=== PATIENT | male | born 1975 | race Caucasian/White ===

== ENCOUNTER 2025-01-05 11:20 | Emergency (ER) | payer MEDICAID, OTHER ==
[~2025-01-05] VITALS: Ht 188 cm; Wt 95.9 kg
[2025-01-05 12:32] LABS: Basophils # (auto) 0.1 10 ^3/uL (0-0.2); Basophils % (auto) 1.3 % (0.0-2.0); Eosinophils # (auto) 0.2 10 ^3/uL (0-0.8); Eosinophils % (auto) 2.5 % (0.0-7.0); Hematocrit 46.2 % (41.0-53.0); Hemoglobin 15.8 g/dL (13.5-17.5); Lymphocytes # (auto) 1.7 10 ^3/uL (0.4-5.4); Lymphocytes % (auto) 23.9 % (10.0-50.0); Mean Corpuscular Hemoglobin 30.2 pg (28.0-32.0); Mean Corpuscular Hgb Conc. 34.1 g/dL (32.0-36.0); Mean Corpuscular Volume 88.4 fL (80.0-100.0); Monocytes # (auto) 0.5 10 ^3/uL (0-1.3); Monocytes % (auto) 7.2 % (0.0-12.0); Neutrophils # (auto) 4.5 10 ^3/uL (1.6-8.6); Neutrophils % (auto) 65.1 % (37.0-80.0); Nucleated Red Blood Cells % 0.2 %; Platelet Count (auto) 98 10^3/uL (140-450); Red Blood Cells 5.22 10^6/uL (4.5-5.90); Red Cell Distribution Width 13.6 % (11.8-14.3); White Blood Cell 6.9 10^3/uL (4.4-10.8)
[2025-01-05 12:37] LABS: Alanine Aminotransferase 16 U/L (7-40); Albumin 4.8 g/dL (3.2-4.8); Alkaline Phosphatase 50 U/L (46-116); Anion Gap 11 (5-15); BUN/Creatinine Ratio 12.5 (10.0-20.0); Bilirubin, Total 0.9 mg/dL (0.2-1.0); Blood Urea Nitrogen 17 mg/dL (9-23); Calcium 9.7 mg/dL (8.7-10.4); Carbon Dioxide 25 mmol/L (20-31); Chloride 106 mmol/L (98-107); Lipase 41 U/L (12-53); Sodium 142 mmol/L (136-145)
[2025-01-05 12:39] LABS: Aspartate Aminotransferase 13 U/L (13-40); Glucose 120 mg/dL (74-106)
[2025-01-05] MEDS: SODIUM CHLORIDE 0.9% 1,000 ML IV ONE (12:43)
[2025-01-05] MEDS: ONDANSETRON HCL 4 MG/2 ML VIAL IV ONE (12:43)
[2025-01-05] MEDS: KETOROLAC TROMETH 30 MG/ML 1ML VIAL IV ONE (12:44)
[2025-01-05] MEDS: MORPHINE SULFATE 4 MG/ML SYR/VIAL IV ONE (12:45)
[2025-01-05] MEDS: MAGNESIUM SULFATE 1GM/100ML 100 ML IV SCH (12:53)
--- NOTE | 2025-01-05 13:22 | DVH ---
Indication: L flank pain Technique: CT axial images of the abdomen and pelvis are obtained without contrast. Coronal and sagit mario reformats were obtained. Radiation Dose Information: CTDI volume is 12.24 mGy. Dose-length product is 695.67 mGy*cm Comparison: None FINDINGS: There is limited interpretation of the abdomen and pelvis without administration of intravenous contr ast. The lung bases demonstrate no pleural effusion. Adrenal glands, spleen and pancreas unremarkable in shape. Liver unremarkable in shape. No CT eviden ce for cholelithiasis. There is mild to moderate left hydroureteronephrosis secondary to a distal left ureteral calculus paul suring 2 mm. Left perinephric edema and stranding. Right kidney demonstrates no significant hydrone phrosis /nephrolithiasis. Stomach is partially distended. Small bowel loops are normal in caliber. Moderate volume stool in the colon. Normal appendix. Abdominal aortic atherosclerotic disease. Bladder is partially distended. No free pelvic fluid. No in guinal lymphadenopathy. [id number] thoracolumbar degenerative disc disease. IMPRESSION: 1. Mild to moderate left hydroureteronephrosis secondary to a 2 mm distal left ureteral calculus
[2025-01-05] MEDS ORDERED: TAMS-35 PO (13:53)
[2025-01-05] MEDS ORDERED: LEVO500T91 PO (13:53)
[2025-01-05] MEDS ORDERED: HYDR-4902 PO (13:53)
--- NOTE | 2025-01-05 13:54 | ED.PDOC ---
General HPI Comments 49-year-old male with PMHx Migraines presents with a chief complaint of flank pain x 30 minutes prior to arrival. Patient states that he spontaneously got a sudden, sharp pain in his left flank radiating to the left lower quadrant while at home and came into the ER. Patient denies any injuries or trauma prior to onset of symptoms. Patient reports he had a migraine headache last night, however no other symptoms. He denies nausea, vomiting, fever, diarrhea, constipation or dysuria. No other symptoms or modifying factors present at this time. Chief Complaint: Flank Pain Time Seen by MD: 13:42 Primary Care Provider: NONE Reviewed notes: Medications, Allergies Allergies: Coded Allergies: Penicillins (Verified Allergy, Unknown, 01/05/25) Sulfa Antibiotics (Verified Allergy, Unknown, 01/05/25) Home Meds Active Scripts Levofloxacin Hemihydrate (LEVAQUIN 500 MG) 500 Mg Tab, 1 TAB PO DAILY, #7 TAB Prov:VEE CLARK MD 01/05/25 Tamsulosin Hcl (Flomax) 0.4 Mg Cap, 1 CAP PO DAILY, #20 CAP 11 Refills 1 po daily, 30 min after same meal. Take until pain resolves. Prov:VEE CLARK MD 01/05/25 Hydrocodone-Acetaminophen (Hydrocodone Bitartrate/AC 5-325 mg) 1 Tab Tab, 1-2 TAB PO Q6HP PRN, #20 TAB prn breakthrough pain Prov:VEE CLARK MD 01/05/25 Information Source: Patient Mode of Arrival: Ambulatory Severity: Moderate Inability to void: None Timing: Hours Duration: Since onset Has not urinated for: Minutes Prehospital treatment: None Onset: Spontaneous Symptoms: None History of: None Location: (L)Flank Penile discharge: None Modifying factors: None associated signs and symptoms: Flank Pain Past Medical History Past Medical History (Other): Migraines Surgical History: Hernia Repair Surgical History (Other): Vasectomy, Left Knee Repair Family History Family History: Reviewed,noncontributory to illness Social History Smoker: Non-Smoker Alcohol: Denies ETOH Use Drugs: Denies Drug Use Lives In: Home Constitutional: denies: chills, diaphoresis, fatigue, fever, malaise, sweats, weakness, others EENTM: denies: blurred vision, double vision, ear bleeding, ear discharge, ear drainage, ear pain, ear ringing, eye pain, eye redness, hearing loss, mouth pain, mouth swelling, nasal discharge, nose bleeding, nose congestion, nose pain, photophobia, tearing, throat pain, throat swelling, voice changes, others Respiratory: denies: cough, hemoptysis, orthopnea, SOB at rest, shortness of breath, SOB with excertion, stridor, wheezing, others Cardiovascular: denies: chest pain, dizzy spells, diaphoresis, Dyspnea on exertion, edema, irregular heart beat, left arm pain, lightheadedness, palpitations, PND, syncope, others Gastrointestinal: denies: abdomen distended, abdominal pain, blood streaked bowels, constipated, diarrhea, dysphagia, difficulty swallowing, hematemesis, melena, nausea, poor appetite, poor fluid intake, rectal bleeding, rectal pain, vomiting, others Genitourinary: reports: flank pain; denies: burning, dysuria, frequency, hematuria, incontinence, penile discharge, penile sore, pain, testicle pain, testicle swelling, urgency, others Neurological: denies: dizziness, fainting, headache, left sided numbness, left sided weakness, numbness, paresthesia, pre-existing deficit, right sided numbness, right sided weakness, seizure, speech problems, tingling, tremors, weakness, others Musculoskeletal: denies: back pain, gout, joint pain, joint swelling, muscle pain, muscle stiffness, neck pain, others Integumetry: denies: bruises, change in color, change in hair/nails, dryness, laceration, lesions, lumps, rash, wounds, others Allergic/Immunocompromised: denies: Difficulty Healing, Frequent Infections, Hives, Itching, others Hematologic/Lymphatic: denies: anemia, blood clots, easy bleeding, easy bruising, swollen glands, others Endocrine: denies: excessive hunger, excessive sweating, excessive thirst, excessive urination, flushing, intolerance to cold, intolerance to heat, unexplained weight gain, unexplained weight loss, others Psychiatric: denies: anxiety, bipolar disorder, depression, hopeless, panic disorder, schizophrenia, sleepless, suicidal, others All Other Systems: Reviewed and Negative Physical Exam General Appearance: Moderate Distress HEENT: Other (Pupils and face symmetric. Moist mucous membranes.) Neck: Full Range of Motion, Normal Inspection Respiratory: Lungs Clear, No Accessory Muscle Use, No Respiratory Distress, Normal Breath Sounds Cardiovascular: No Edema, No JVD, Regular Rate/Rhythm Breast Exam: Deferred Gastrointestinal: Soft, Other (Left mid and lower flank tenderness to palpation, mild left mid abdominal tenderness to palpation. No rebound or guarding) Genitalia: Deferred Pelvic: Deferred Rectal: Deferred Extremities: Normal inspection, Normal range of motion, Non-tender, No pedal edema Neurologic: Alert (Oriented x4), Normal Affect, Normal Mood, Other (Ambulatory) Cerebellar Function: NOT DONE Reflexes: NOT DONE Skin: Dry, Normal Color, Warm Lymphatic: NOT DONE Was a procedure done? Was a procedure done?: No Differential Diagnosis Kidney stone (Female): N/A Kidney stone (Male): Aortic dissection, Pyelonephritis, Renal failure, Strain, Urinary obstruction, Urolithiasis, Urinary tract infection Penile/Scrotal: N/A X-Ray, Labs, Meds, VS Vital Signs Date Time Temp Pulse Resp B/P (MAP) Pulse Ox O2 Delivery O2 Flow Rate FiO2 01/05/25 13:43 85 19 144/98 01/05/25 12:45 62 22 155/102 01/05/25 12:44 98.6 63 18 155/102 (119) 97 98.6 01/05/25 11:41 98.7 69 16 140/90 (107) 100 98.7 01/05/25 11:41 69 18 100 Room Air 01/05/25 11:35 97.9 68 17 100/74 (83) 100 97.9 Lab Test 01/05/25 11:50 Range/Units White Blood Count 6.9 4.4-10.8 10^3/uL Red Blood Count 5.22 4.5-5.90 10^6/uL Hemoglobin 15.8 13.5-17.5 g/dL Hematocrit 46.2 41.0-53.0 % Mean Corpuscular Volume 88.4 80.0-100.0 fL Mean Corpuscular Hemoglobin 30.2 28.0-32.0 pg Mean Corpuscular Hemoglobin Concent 34.1 32.0-36.0 g/dL Red Cell Distribution Width 13.6 11.8-14.3 % Platelet Count 98 L 140-450 10^3/uL Mean Platelet Volume 12.0 H 6.9-10.8 fL Neutrophils (%) (Auto) 65.1 37.0-80.0 % Lymphocytes (%) (Auto) 23.9 10.0-50.0 % Monocytes (%) (Auto) 7.2 0.0-12.0 % Eosinophils (%) (Auto) 2.5 0.0-7.0 % Basophils (%) (Auto) 1.3 0.0-2.0 % Neutrophils # (Auto) 4.5 1.6-8.6 10 ^3/uL Lymphocytes # (Auto) 1.7 0.4-5.4 10 ^3/uL Monocytes # (Auto) 0.5 0-1.3 10 ^3/uL Eosinophils # (Auto) 0.2 0-0.8 10 ^3/uL Basophils # (Auto) 0.1 0-0.2 10 ^3/uL Nucleated Red Blood Cells 0.2 % Platelet Estimate Pending Sodium Level 142 136-145 mmol/L Potassium Level 4.0 3.5-5.1 mmol/L Chloride Level 106 98-107 mmol/L Carbon Dioxide Level 25 20-31 mmol/L Anion Gap 11 5-15 Blood Urea Nitrogen 17 9-23 mg/dL Creatinine 1.36 H 0.700-1.30 mg/dL Glomerular Filtration Rate Calc 64 >90 mL/min BUN/Creatinine Ratio 12.5 10.0-20.0 Serum Glucose 120 H 74-106 mg/dL Calcium Level 9.7 8.7-10.4 mg/dL Total Bilirubin 0.9 0.2-1.0 mg/dL Aspartate Amino Transferase (AST) 13 13-40 U/L Alanine Aminotransferase (ALT) 16 7-40 U/L Alkaline Phosphatase 50 46-116 U/L Total Protein 7.0 5.7-8.2 g/dL Albumin 4.8 3.2-4.8 g/dL Lipase 41 12-53 U/L Current Medications Medications (Trade) Dose Ordered Sig/Joanie Route Start Time Stop Time Status Last Admin Sodium Chloride 1,000 ml @ 1,000 mls/hr Q1H ONCE IV 01/05/25 11:45 01/05/25 12:44 DC 01/05/25 12:43 Ketorolac Tromethamine (Toradol Injection) 30 mg ONCE ONCE IV 01/05/25 11:45 01/05/25 11:47 DC 01/05/25 12:44 Ondansetron HCl (Zofran) 4 mg ONCE ONCE IV 01/05/25 11:45 01/05/25 11:47 DC 01/05/25 12:43 Magnesium Sulfate/ Dextrose 100 ml @ 100 mls/hr Q1H IV 01/05/25 11:45 01/05/25 13:44 DC 01/05/25 13:40 Morphine Sulfate 4 mg ONCE ONCE IV 01/05/25 12:45 01/05/25 12:46 DC 01/05/25 12:45 PROCEDURE(s): ABPL - CT AB PEL WO CON-NO ORAL OR IV REASON: L flank pain ORDER NUMBER(s): [id number], ACCESSION NUMBER(s): [id number] Indication: L flank pain Technique: CT axial images of the abdomen and pelvis are obtained without contrast. Coronal and sagittal reformats were obtained. Radiation Dose Information: CTDI volume is 12.24 mGy. Dose-length product is 695.67 mGy*cm Comparison: None FINDINGS: There is limited interpretation of the abdomen and pelvis without administration of intravenous contrast. The lung bases demonstrate no pleural effusion. Adrenal glands, spleen and pancreas unremarkable in shape. Liver unremarkable in shape. No CT evidence for cholelithiasis. There is mild to moderate left hydroureteronephrosis secondary to a distal left ureteral calculus measuring 2 mm. Left perinephric edema and stranding. Right kidney demonstrates no significant hydronephrosis /nephrolithiasis. Stomach is partially distended. Small bowel loops are normal in caliber. Moderate volume stool in the colon. Normal appendix. Abdominal aortic atherosclerotic disease. Bladder is partially distended. No free pelvic fluid. No inguinal lymphadenopathy. [id number] thoracolumbar degenerative disc disease. IMPRESSION: 1. Mild to moderate left hydroureteronephrosis secondary to a 2 mm distal left ureteral calculus X-Ray, Labs, Meds, VS Comment 49-year-old male with a history of migraines complaining of left flank pain of sudden onset Initial vitals unremarkable Exam remarkable for left flank tenderness to palpation and left mid abdominal tenderness Rhythm strip independently interpreted by me: Sinus rhythm, rate 68, no ectopy. CT abdomen and pelvis: IMPRESSION: 1. Mild to moderate left hydroureteronephrosis secondary to a 2 mm distal left ureteral calculus CBC unremarkable, metabolic panel remarkable for creatinine 1.36, lipase normal, urine sample not provided Patient treated with the following in the ED: 1 L 0.9 normal saline IV bolus, Toradol 30 mg IV, Zofran 4 mg IV, morphine 4 mg IV, Mag rider 2 g IV, Levaquin 500 mg IV On re-evaluation, patient states pain has improved. Vitals were stable. Repeat abdominal exam is benign. Patient appears stable for discharge with close outpatient follow-up with his primary physician for referral to urologist. Patient also referred to Dr. Baldemar Goldstein. Rx [place], Gem, Flomax Time of 1ST Reevaluation: 14:12 Reevaluation 1ST: Unchanged Time of 2ND Reevaluation: 14:01 Reevaluation 2ND: Improved Patient Education/Counseling: Diagnosis, Treatment Family Education/Counseling: No Family Present Departure 1 Departure Time of Disposition: 14:01 Impression: Primary Impression: Hydronephrosis concurrent with and due to calculi of kidney and ureter Disposition: 01 HOME / SELF CARE / HOMELESS Condition: Stable Referrals: PADMINI GOLDSTEIN MD Additional Instructions: Your blood tests were essentially unremarkable. Your CT scan showed your passing a kidney stone on the left side. You did not provide a urine sample, so I have prescribed antibiotics to cover any possible urinary tract infection. I have also prescribed pain medication and medication to help the stone pass faster. Follow-up with your primary doctor in 1-2 days for referral to an urologist for further evaluation of your kidney stone. Alternatively, follow-up directly with Dr. Baldemar Goldstein. e-Prescriptions Levofloxacin Hemihydrate (LEVAQUIN 500 MG) 500 Mg Tab 1 TAB PO DAILY, #7 TAB Prov: VEE CLARK MD 01/05/25 Tamsulosin Hcl (Flomax) 0.4 Mg Cap 1 CAP PO DAILY, #20 CAP 11 Refills 1 po daily, 30 min after same meal. Take until pain resolves. Prov: VEE CLARK MD 01/05/25 Hydrocodone-Acetaminophen (Hydrocodone Bitartrate/AC 5-325 mg) 1 Tab Tab 1-2 TAB PO Q6HP PRN, #20 TAB prn breakthrough pain Prov: VEE CLARK MD 01/05/25 Discharged With: Relative Critical Care Note Critical Care Time?: No Stability Stability form required: No Heart Score Heart Score: Heart Score Response (Comments) Value History N/A 0 EKG N/A 0 Age N/A 0 Risk Factors N/A 0 Troponin N/A 0 Total 0 I personally scribed for VEE CLARK MD ([email or web address]) on 01/05/25 at 13:54. Electronically submitted by Jaime Chavez ([email or web address]). VEE CLARK MD January 05, 2025 13:54
[2025-01-05] MEDS: levoFLOXacin 500MG 100 ML IV ONE (14:15)
[2025-01-05 14:25] LABS: Platelet Estimate Decreased
[2025-01-05 14:26] LABS: Giant Platelets Few
[2025-01-05 14:30] VITALS: BP 140/89; TEMP 98
[2025-01-05 14:31] VITALS: PULSE 70; RESP 16; O2SAT 96
== END 2025-01-05 14:42 | disposition home or self-care (01) ==
LOC: ER 11:25
DX: N13.2 Hydronephrosis with renal and ureteral calculous obstruction (principal); G43.909 Migraine, unspecified, not intractable, without status migrainosus; Z88.0 Allergy status to penicillin; Z88.2 Allergy status to sulfonamides; Z98.890 Other specified postprocedural states; Z79.899 Other long term (current) drug therapy
CPT/HCPCS: 36415; 74176; 80053; 83690; 85025; 96365; 96366; 96368; 96375; 99285; J1885; J1956; J2270; J2405; J3475; J7030